=== PATIENT | female | born 1945 | race Caucasian/White ===

== ENCOUNTER 2018-01-11 14:44 | Inpatient (IN) | payer MEDICARE, OTHER ==
[2018-01-11] VITALS (20 sets, daily range): BP systolic 131–184; BP diastolic 53–101
[~2018-01-11] VITALS: Ht 177.8 cm; Wt 117.5 kg
[2018-01-11] MEDS ORDERED: ASPIRIN 81 MG CHEW TAB PO ONE (14:45)
[2018-01-11 15:38] LABS: BASOPHILS # (AUTO) 0.1 (0.0-0.1); EOSINOPHILS # (AUTO) 0.2 (0.0-0.4); EOSINOPHILS % 3.4 % (0.0-6.0); HEMATOCRIT 37.4 % (34.2-44.1); HEMOGLOBIN 12.2 g/dL (12.0-16.0); LYMPHOCYTES % 42.1 % (18.0-39.1); MEAN CORPUSCULAR HEMOGLOBIN 29.9 pg (28-32); MEAN CORPUSCULAR HGB CONC 32.6 g/dL (31-35); MEAN CORPUSCULAR VOLUME 91.7 fL (81-99); MONOCYTES # (AUTO) 0.5 (0.2-0.8); MONOCYTES % 7.4 % (4.4-11.3); NEUTROPHILS # (AUTO) 3.2 (2.1-6.9); NEUTROPHILS % 45.8 % (38.7-80.0); PLATELET COUNT 229 x10e3/uL (140-360); RED BLOOD COUNT 4.08 x10e6/uL (3.6-5.1); RED CELL DISTRIBUTION WIDTH 12.6 % (11.7-14.4)
--- NOTE | 2018-01-11 15:45 | Diagnostic Imaging Report ---
History:Slurred speech dizziness Comparison studies:MR brain 09/08/18 Technique: Axial images were obtained from the skull base to the vertex. Coronal and sagittal images reconstructed from the axial data. Intravenous contrast: None Findings: Scalp/skull: No abnormalities. Extra-axial spaces: No masses. No fluid collections. Brain sulci: Mildly prominent. Ventricles: Mild compensatory dilatation. No hydrocephalus. Parenchyma: Few hypodensities in the supratentorial white matter are small vessel ischemic changes. No masses, hemorrhage, acute or chronic cortical vascular insults. Sellar/suprasellar region: No abnormalities. Craniocervical junction: Patent foramen magnum. No Chiari one malformation. Incidental findings: Atherosclerotic calcifications in the carotid siphons . Impression: No acute abnormalities. Chronic findings: 1. Mild generalized volume loss. 2. Mild supratentorial white matter small vessel ischemic changes. Signed by: DR Dre Martinez M.D. on 01/11/2018 3:41 PM
--- NOTE | 2018-01-11 15:46 | Diagnostic Imaging Report ---
EXAMINATION: CHEST SINGLE (PORTABLE) INDICATION: Evaluation for possible stroke COMPARISON: None FINDINGS: TUBES and LINES: None. LUNGS: Lungs are well inflated. Lungs are clear. There is no evidence of pneumonia or pulmonary edema. PLEURA: No pleural effusion or pneumothorax. HEART AND MEDIASTINUM: Cardiac size is mildly enlarged. There are atherosclerotic calcifications within the aorta. BONES AND SOFT TISSUES: No acute osseous lesion. Anterior cervicothoracic spine fusion with plates and screws. Soft tissues are unremarkable. UPPER ABDOMEN: No free air under the diaphragm. IMPRESSION: No acute thoracic abnormality. Signed by: Dr. Jens Whalen M.D. on 01/11/2018 3:42 PM
[2018-01-11 15:53] LABS: INR 1.09; PROTHROMBIN TIME 13.3 seconds (11.9-14.5)
[2018-01-11 15:54] LABS: PARTIAL THROMBOPLASTIN TIME 34.2 seconds (23.8-35.5)
[2018-01-11 15:59] LABS: ALANINE AMINOTRANSFERASE 15 IU/L (0-55); ALBUMIN/GLOBULIN RATIO 1.1 (0.8-2.0); ALKALINE PHOSPHATASE 85 IU/L (40-150); ANION GAP 17.5 mmol/L (8-16); BLOOD UREA NITROGEN 7 mg/dL (7-26); BUN/CREATININE RATIO 8 (6-25); CALCIUM 9.8 mg/dL (8.4-10.2); CARBON DIOXIDE 22 mmol/L (22-29); CHLORIDE 108 mmol/L (98-107); CREATINE KINASE 95 IU/L (29-168); CREATININE, SERUM 0.83 mg/dL (0.57-1.11); EST GLOMERULAR FILTRATION RATE > 60 ML/MIN (60-); GLUCOSE 120 mg/dL (74-118); POTASSIUM 4.5 mmol/L (3.5-5.1); SODIUM 143 mmol/L (136-145)
[2018-01-11 16:14] LABS: BILIRUBIN,URINE NEGATIVE (NEGATIVE); CLARITY,URINE SL CLOUDY (CLEAR); COLOR,URINE YELLOW (YELLOW); KETONES,URINE NEGATIVE (NEGATIVE); LEUKOCYTE ESTERASE ,URINE 1+ (NEGATIVE); NITRITE,URINE NEGATIVE (NEGATIVE); PROTEIN,URINE DIPSTICK 1+ (NEGATIVE); URINE UROBILINOGEN 0.2 mg/dL (0.2 - 1)
[2018-01-11 16:22] LABS: EPITHELIAL CELLS,URINE MANY /LPF; RBC,URINE 0-5 /HPF (0-5); RENAL EPITHELIAL CELLS,URINE RARE; TRANSITIONAL EPI CELLS,URINE MODERATE
[2018-01-11] MEDS ORDERED: LORAZEPAM 0.5 MG TAB PO PRN (17:00)
[2018-01-11] MEDS ORDERED: ONDANSETRON HCL INJ 2 MG/ML VIAL IV PRN ×2 (17:00→17:45)
[2018-01-11] MEDS ORDERED: KETOROLAC TROMETHAMINE 30 MG/ML VIAL IV ONE (17:00)
[2018-01-11] MEDS ORDERED: LORAZEPAM 1 MG TAB PO ONE (17:00)
[2018-01-11] MEDS: NITROFURANTOIN MACROCRYSTALS 100 MG CAP PO SCH (17:00)
[2018-01-11] MEDS ORDERED: ASPIRIN 325 MG TAB PO ONE (17:00)
[2018-01-11] MEDS: SODIUM CHLORIDE 0.9% 1000ML 1,000 ML IV SCH (17:00)
[2018-01-11] MEDS ORDERED: ACETAMINOPHEN 325 MG TAB PO PRN (17:45)
[2018-01-11] MEDS ORDERED: LISINOPRIL10 MG PO (17:58)
[2018-01-11] MEDS ORDERED: MACROBID 100 M100 MG (18:00)
[2018-01-11] MEDS ORDERED: CRESTOR10 MG (18:00)
[2018-01-11] MEDS: HYDRALAZINE HCL 20 MG/ML VIAL IV PRN (18:48)
[2018-01-11] MEDS ORDERED: ALTEPLASE 50 MG/VIAL (29 MILLION IU) IV ONE ×3 (20:13→22:00)
--- NOTE | 2018-01-11 20:40 | Diagnostic Imaging Report ---
Examination: CT head without contrast Clinical Indication: Dizziness; rule out stroke. Technique: Transaxial noncontrast images from the skull base through the vertex were obtained. Sagittal and coronal reformatted images were done. Comparison: Head CT performed earlier today. Findings: Scalp: No abnormalities. Bones: Intact. No fractures. No blastic or lytic lesions. Brain sulci: Mild volume loss for patient's age. Ventricles: No hydrocephalus. Extra-axial space: No abnormalities. Parenchyma: There are patchy areas of low-attenuation within subcortical and periventricular white matter, nonspecific, but could represent microvascular ischemic disease. No masses, hemorrhage, or acute or chronic cortical based vascular insults. Suprasellar region: No abnormalities. Craniocervical junction: The foramen magnum is patent. No Chiari one malformation. Incidental findings: Atherosclerotic calcification of the cavernous and supraclinoid internal carotid and V4 segments of the bilateral vertebral arteries. Impression: 1. No new acute intracranial finding. No change from head CT performed earlier today. 2. Mild chronic microvascular ischemic change and volume loss. Signed by: Dr. Anni Hartman M.D. on 01/11/2018 8:36 PM
--- NOTE | 2018-01-11 22:59 | Consultation ---
DATE OF CONSULTATION: January 11, 2018 NEUROLOGY CONSULT HISTORY OF PRESENT ILLNESS: Ms. Foster is a 72-year-old right hand dominant woman with past medical history significant for hypertension and hyperlipidemia, who presented to the Emergency Center at [facility] on the afternoon of January 11, 2018, with neurological symptoms. At approximately 1400 on the day of admission, the patient experienced the acute onset of dysarthria, expressive aphasia, and dizziness which is further described as lightheadedness. Simultaneously, the patient noticed she was drooling, suggesting a facial droop. However, Ms. Foster cannot say whether or not she had a facial droop or which side the facial droop may have been on. When she informed her of her symptoms, he put the patient in a car and brought her to the Emergency Center at [facility] for further evaluation. While they were en route, the patient's daughter contacted the Emergency Center to let the physicians and nurses know the patient would be arriving soon. Upon arrival in the emergency center, the patient was afebrile with a blood pressure of 148/126 mmHg and a pulse of 73 beats per minute. While in the emergency room, the patient's symptoms reportedly began to improve and subsequently resolved. However, there is disagreement between the patient's various family members as to whether or not her symptoms did in fact resolve. The patient's neurological examination as documented by the emergency center physician is as follows: Alert. Oriented times 3. Aphasia (slight slurred speech). Mood/affect normal. Speech normal. Cranial nerves normal (as tested). No cerebellar findings. No motor deficits. No sensory deficit. Reflexes normal. A CT of the brain without contrast was performed and did not show evidence of recent large territorial ischemia or hemorrhage. As stated above, the emergency center physician and staff reported the patient's symptoms significantly improved and subsequently resolved while in the emergency center. Therefore, the patient was not considered a candidate for intravenous thrombolytics. Ms. Foster was admitted to the hospital under observation status for further evaluation and treatment of her symptoms. At approximately 1910 on January 11, 2018, the patient experienced the sudden onset of dysarthria, expressive aphasia, right facial droop, and right arm weakness. I was contacted by the floor nurse at approximately 1930 regarding the recurrence of symptoms. I advised the patient be moved to the intensive care unit for administration of intravenous thrombolytics if appropriate. Upon my arrival in the intensive care unit, the patient's blood pressure was elevated in the 180s systolic and 100s diastolic. A neurological examination was performed. Ms. Foster was given an NIH stroke scale score of 4 with 1 point given for dysarthria, 1 point for aphasia, 1 point for right facial droop, and 1 point for drift in the right arm. A STAT CT of the brain without contrast was performed and did not show evidence of recent large territorial ischemia or hemorrhage. It was determined the patient had no absolute contraindications to intravenous thrombolytics. The potential benefits and adverse effects of intravenous t-PA were discussed with the patient who gave her consent for treatment. At approximately 2019, the patient received a loading dose of t-PA 9 mg intravenously followed by an infusion of 81 mg intravenously over 1 hour. REVIEW OF SYSTEMS: Urinary urgency, urinary frequency, dysarthria, expressive aphasia, right facial weakness, right arm weakness, mild headache. Otherwise the 12-point review of systems is negative. PAST MEDICAL HISTORY: Hypertension, hyperlipidemia, multiple urinary tract infections, gastroesophageal reflux disease, prior history of migraines. PAST SURGICAL HISTORY: Resection of a benign colon mass, bilateral total knee replacements, lumbar spine laminectomy, cervical spine surgery complicated by infection, tonsillectomy, appendectomy. PAST HOSPITALIZATIONS: Surgeries/procedures as listed, childbirth times 2. FAMILY HISTORY: The patient's paternal and maternal grandparents are . Their medical histories are unknown. The patient's father is from coronary artery disease with prior myocardial infarction. The patient's mother is . Her cause of is unknown. Ms. Foster has 1 brother who is alive. He has coronary artery disease and is status post CABG. Ms. Foster has 1 daughter, who is alive. She has hypertension and epilepsy. A 2nd child was stillborn. SOCIAL HISTORY: The patient is . She is a high school graduate. 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 The patient does endorse a remote history of tobacco use, but quit smoking cigarettes in 1998. Ms. Foster does not report current or prior alcohol or recreational drug use. HOME MEDICATIONS: 1. Lisinopril 10 mg by mouth daily. 2. Crestor 10 mg by mouth daily. 3. Macrobid 100 mg by mouth twice daily. ALLERGIES: NO KNOWN DRUG ALLERGIES. NO KNOWN FOOD ALLERGIES. NO KNOWN ALLERGIES TO LATEX. NO KNOWN ALLERGIES TO IODINE OR OTHER CONTRAST MATERIALS. PHYSICAL EXAMINATION: VITAL SIGNS: Height 70 inches, weight 260 pounds, BMI 37.3 kg/m squared. Blood pressure 175/101 mmHg, pulse 85 beats per minute, respiratory rate 18 breaths per minute, oxygen saturation 99% on 2 L by nasal cannula. GENERAL: The patient is awake and alert, moderately distressed. Morbidly obese. HEENT: Normocephalic, atraumatic. Pupils are equal, round and reactive to light. Moist mucous membranes. NECK: Supple. No appreciable thyromegaly. No appreciable carotid bruits. CARDIOVASCULAR: S1, S2, regular rate and rhythm. No murmurs, rubs, or gallops. RESPIRATORY: Clear to auscultation bilaterally. No wheezes, rhonchi, or rales. EXTREMITIES: The skin is warm and dry. No clubbing, cyanosis, or edema. The posterior tibial and dorsalis pedis pulses are 1+ and symmetric. SKIN: No rashes or lesions. NEUROLOGIC: MEMORY/ATTENTION: The patient is awake and alert, oriented to person, place, time and situation. CRANIAL NERVES: Cranial nerve I-not tested. Cranial nerve II, III, IV, and -pupils are equal and round, react briskly to light (from 4 mm to 2 mm), extraocular movements intact, no nystagmus. Cranial nerve V-sensation to light touch and pinprick is intact in the bilateral V1 through V3 distributions. Strength of the temporalis and masseter muscles is within normal limits. Cranial nerve VII-flattening of the right nasolabial fold with mild central right facial weakness. Cranial nerve VIII-hearing is diminished to finger rub bilaterally. Cranial nerve IX, X-the soft palate elevates equally and symmetrically. Cranial nerve XI-normal strength of the bilateral sternocleidomastoid and trapezius muscles. Cranial nerve XII-the tongue protrudes in midline and moves symmetrically from side to side. STRENGTH: Bulk is normal. Ms. Foster is able to maintain both arms against gravity for more than 10 seconds each with drift in the right arm. She is able to maintain both legs against gravity for more than 5 seconds each without drift. Tone is normal. DTRs: Deep tendon reflexes are 1+ and symmetric at the triceps, biceps, brachioradialis, and patellas. Deep tendon reflexes are absent and symmetric at the Achilles. Plantar responses are flexor bilaterally. SENSATION: Sensation is intact to light touch in both arms and both legs. Sensation is decreased to pinprick over the left arm and right leg. CEREBELLAR: Qzeyuu-ojpz-zppgnr and heel-coppola movements are intact without dysmetria or other impairment. GAIT: Deferred. SPEECH: Spontaneous speech is mildly to moderately dysarthric with moderate aphasia. Repetition is intact. INVOLUNTARY MOVEMENTS: None. PRONATOR DRIFT: As per motor exam. LABORATORY DATA: Sodium 143, potassium 4.5, chloride 108, carbon dioxide 22, anion gap 17.5, BUN 7, creatinine 0.83, estimated GFR greater than 60, BUN to creatinine ratio 8, glucose 120. Calcium 9.8. Total bilirubin 0.4, AST 27, ALT 15, alkaline phosphatase 85. Total protein 7.8, albumin 4.0, globulin 3.8, albumin to globulin ratio 1.1, creatinine kinase 95, CK-MB 1.30, troponin I 0.028, B-type natriuretic peptide 484.6. CBC with differential and platelets reveal the white blood cell count of 7.06 with 45.8% neutrophils, 42.1% lymphocytes, 7.4% monocytes, 3.4% eosinophils and 1.0% basophils. The hemoglobin and hematocrit are 12.2 and 37.4, respectively. The platelet count is 229,000. PT 13.3, INR 1.09, PTT 34.2. Urinalysis is significant for 1+ protein, trace blood, 1+ leukocyte esterase, 11 to 20 white blood cells, moderate transition epithelials cells, rare renal epithelials cells, no bacteria and 1 to 5 fine granular casts. DIAGNOSTIC STUDIES: Electrocardiogram of January 11, 2018: Normal sinus rhythm at 66 beats per minute. Chest x-ray of January 11, 2018: No acute thoracic abnormality. CT of the brain without contrast of January 11, 2018: On my review, there is no evidence of recent large territorial ischemia, hemorrhage, mass, or mass effect. There are findings suggestive of upus-iu-zasucotr chronic small vessel ischemic disease. CT of the brain without contrast of January 12, 2008: On my review, there is no evidence of recent large territorial ischemia, hemorrhage, mass, or mass effect. There are findings compatible with luuk-[id number] chronic small vessel ischemic disease. ASSESSMENT AND PLAN: Ms. Foster is a 72-year-old right hand dominant woman with past medical history significant for hypertension and hyperlipidemia, admitted to [facility] on January 11, 2018, with a suspected transient ischemic attack. As stated in the history of present illness, the patient's symptoms reportedly resolved while in the emergency center. However, following admission to the floor, the patient once again experienced the acute onset of dysarthria, expressive aphasia, right facial droop, and right arm weakness at approximately 1910. On my neurological examination, the patient was given an National Institutes of Health Stroke Scale score of 4. A repeat computed tomography of the brain without contrast was performed that did not show evidence of recent ischemia or hemorrhage. As stated in the history of present illness, the patient had no absolute contraindications to intravenous thrombolytics. Informed consent was obtained and Ms. Foster was treated with intravenous tissue plasminogen activator, 9 mg loading dose and 81 mg infused over 1 hour. The patient's neurological examination is significant for flattening of the right nasolabial fold with mild central right facial weakness, drift of the right arm, mild to moderate dysarthria and moderate expressive aphasia. The patient's laboratory data and other diagnostic studies have been reviewed and are documented above. RECOMMENDATIONS: 1. Lipid panel and hemoglobin A1c. 2. Echocardiogram. 3. Bilateral carotid artery ultrasound with Doppler. 4. MRI of the brain without contrast. 5. No antiplatelet or anticoagulant medication will be given for 24 hours, status post t-PA administration. 6. Allow permissive hypertension for 24 to 48 hours following a stroke. The patient's goal blood pressure is 170 to 200 mmHg systolic and 70 to 100 mmHg diastolic. Vital signs shall be monitored per unit protocol. 7. Follow up the results of the lipid panel. In the interim, treatment with Crestor 10 mg by mouth at bedtime daily will be continued. 8. Follow up the results of the hemoglobin A1c. Tight glycemia control is recommended. 9. Speech and physical therapy consultations will be ordered. 10. GI prophylaxis with Pepcid 20 mg by mouth twice daily before meals. 11. DVT prophylaxis with COLLINS hose and SCDs. 12. Continue antibiotics for urinary tract infection. 13. Defer treatment of other medical comorbidities to the primary and other services following the patient. Thank you for this consultation. I will continue to follow the patient while she remains in the hospital. TIME SPENT: 150 minutes. CRITICAL CARE TIME: 80 minutes. Job#: [id number] [id number]
[2018-01-12] VITALS (64 sets, daily range): BP systolic 94–215; BP diastolic 53–117
[2018-01-12 01:24] LABS: CREATINE KINASE MB 1.9 ng/mL (0-5.0)
[2018-01-12] MEDS: SODIUM CHLORIDE 0.9% 1000ML 1,000 ML IV SCH ×2 (03:06→17:32)
[2018-01-12 03:10] LABS: BASOPHILS # (AUTO) 0.1 (0.0-0.1); BASOPHILS % 0.7 % (0.0-1.0); EOSINOPHILS # (AUTO) 0.2 (0.0-0.4); EOSINOPHILS % 2.5 % (0.0-6.0); HEMOGLOBIN 11.6 g/dL (12.0-16.0); LYMPHOCYTES # (AUTO) 2.8 (1.0-3.2); LYMPHOCYTES % 32.7 % (18.0-39.1); MEAN CORPUSCULAR HEMOGLOBIN 30.3 pg (28-32); MEAN CORPUSCULAR HGB CONC 33.1 g/dL (31-35); MEAN CORPUSCULAR VOLUME 91.4 fL (81-99); MONOCYTES # (AUTO) 0.5 (0.2-0.8); MONOCYTES % 6.1 % (4.4-11.3); NEUTROPHILS % 57.8 % (38.7-80.0); PLATELET COUNT 276 x10e3/uL (140-360); RED BLOOD COUNT 3.83 x10e6/uL (3.6-5.1); RED CELL DISTRIBUTION WIDTH 12.8 % (11.7-14.4)
[2018-01-12 03:30] LABS: ANION GAP 14.5 mmol/L (8-16); BLOOD UREA NITROGEN 8 mg/dL (7-26); BUN/CREATININE RATIO 11 (6-25); CALCIUM 9.2 mg/dL (8.4-10.2); CARBON DIOXIDE 22 mmol/L (22-29); CHLORIDE 109 mmol/L (98-107); CHOL/HDL RATIO 3.1 (3.0-3.6); CHOLESTEROL 108 MD/DL (0-199); CREATININE, SERUM 0.73 mg/dL (0.57-1.11); EST GLOMERULAR FILTRATION RATE > 60 ML/MIN (60-); GLUCOSE 123 mg/dL (74-118); HDL CHOLESTEROL 35 MG/DL (40-60); LDL CHOLESTEROL 50 MG/DL (60-130); POTASSIUM 3.5 mmol/L (3.5-5.1); SODIUM 142 mmol/L (136-145); TRIGLYCERIDES 114 MG/DL (0-149)
[2018-01-12 03:42] LABS: B-TYPE NATRIURETIC PEPTIDE2 777.6 pg/mL (0-100)
[2018-01-12 03:50] LABS: FREE T4 (FREE THYROXINE) 0.81 ng/dL (0.9-1.8); THYROID STIMULATING HORMONE 2.103 uIU/mL (0.350-4.940)
[2018-01-12] MEDS ORDERED: ALBUTEROL SULF 0.083% NEB SOLN 3 ML NEB ONE (06:12)
[2018-01-12] MEDS ORDERED: FUROSEMIDE INJ 10 MG/ML 4 ML VIAL ONE (06:23)
[2018-01-12 07:29] LABS: CREATINE KINASE MB 1.5 ng/mL (0-5.0)
[2018-01-12] MEDS ORDERED: ASPIRIN 325 MG TAB EC PO SCH (09:00)
[2018-01-12] MEDS: FAMOTIDINE 20 MG TAB PO SCH ×2 (09:51→17:32)
[2018-01-12] MEDS: NITROFURANTOIN MACROCRYSTALS 100 MG CAP PO SCH ×2 (09:51→17:32)
--- NOTE | 2018-01-12 14:07 | Diagnostic Imaging Report ---
Exam: Brain MRI without with IV contrast History: Insert speech, rule out CVA Comparison studies: Brain MRI 09/08/[address]s of 01/11/2018. Technique: Sagittal and axial T2 FS, axial coronal T2 flair, axial T2*GRE, axial T1 FLAIR and axial DWI. Intravenous contrast: None Findings: Scalp: Normal in signal. No masses. Bone marrow: Normal in signal intensity. Brain sulci: Mildly prominent. Ventricles: Mild compensatory dilatation. Extra axial spaces: No mass, no fluid collection. Parenchyma: No mass, hemorrhage or acute ischemia. A few scattered T2 FLAIR hyperintense foci in the supratentorial white matter are nonspecific but most compatible with chronic small vessel ischemic changes. Small chronic right cerebellar lacunar infarct is unchanged. Suprasellar region: No abnormalities. Craniocervical junction: Patent foramen magnum. No Chiari malformation. Vessels: Normal flow-voids in the arteries and sinuses. IMPRESSION: No acute ischemia or other acute intracranial abnormalities. Chronic findings: 1. Stable mild microvascular ischemic changes. 2. Unchanged small chronic right cerebellar lacunar infarct. 3. Mild generalized volume loss, increased from 2008. Signed by: Dr. Wayne Veras M.D. on 01/12/2018 2:03 PM
[2018-01-12] MEDS: HYDRALAZINE HCL 20 MG/ML VIAL IV PRN (17:29)
[2018-01-12 18:33] LABS: CREATINE KINASE MB 1.6 ng/mL (0-5.0)
--- NOTE | 2018-01-12 19:08 | History and Physical ---
PRIMARY CARE PHYSICIAN: Dr. Zafar. CHIEF COMPLAINT: Facial droop and slow speech. HISTORY OF PRESENT ILLNESS: This is a 72-year-old woman with a history of hypertension, now developing slurred speech, weakness of the face and right facial droop with right arm weakness. She was brought to the hospital and tPA was given. The patient was admitted to ICU for further evaluation and management. Currently, the patient's symptoms have resolved. She feels better. She has some mild chest discomfort. She denies any dizziness and denies any headache. PAST MEDICAL HISTORY: Hypertension, hyperlipidemia with chronic urinary tract infection, GERD, migraine headaches and hyperlipidemia. PAST SURGICAL HISTORY: Benign colon mass resection in November 2017, knee surgery x2, appendectomy, laminectomy, rotator cuff repair, appendectomy and tonsillectomy. ALLERGIES: PER ELECTRONIC MEDICAL RECORDS. FAMILY HISTORY AND SOCIAL HISTORY: The patient is . She has one child. No alcohol or illicits. No cigarette use. MEDICATIONS: Per electronic medical records. REVIEW OF SYSTEMS: Denies any dizziness or chest pain. PHYSICAL EXAMINATION VITAL SIGNS: Reviewed. GENERAL APPEARANCE: A tired-appearing woman resting in the bed. HEENT: Anicteric. Pupils responsive to light. No oral lesions. CARDIOVASCULAR: Normal S1 and S2. No murmurs. ABDOMEN: Soft and nontender. EXTREMITIES: There is no edema or calf tenderness. NEUROLOGIC: Alert and oriented x3. Moving all extremities. Motor strength 5/5 in all extremities. No visual field deficits. MUSCULOSKELETAL: She has inferior chest wall/upper epigastric discomfort on palpation. SKIN: Dry. PSYCHIATRIC: Flat affect. LABS: Reviewed. MEDICATIONS: Reviewed. ASSESSMENT: This is a 72-year-old woman. 1. Transient ischemic attack. 2. Chronic right cerebellar lacunar infarct. 3. Left bundle branch block. 4. Pericardial effusion. 5. Mild to moderate mitral regurgitation. 6. Obesity with BMI of 36.9. 7. Prediabetes. 8. Elevated B-natriuretic peptide with normal left anterior ejection fraction. 9. Hyperlipidemia. 10. Urinary tract infection. PLAN: 1. She is status post tPA. Monitor closely in the ICU. Currently, no neurologic symptoms any longer. 2. Start on Macrobid for urinary tract infection. She does have a history of recurrent urinary tract infection. While in the hospital, may be more useful to use IV ceftriaxone. Therefore, we will hold nitrofurantoin at this time. Use IV ceftriaxone and follow up cultures. 3. Reduce IV fluids. 4. Continue blood pressure control. 5. EKG and troponin due to chest discomfort. 6. Treat GERD with Pepcid. 7. Physical therapy consultation. 8. The patient's LDL and triglycerides were 50 and 114 respectively. 9. Anxiety. Continue lorazepam p.r.n. 10. Prophylaxis: Continue Pepcid and Lovenox. DISPOSITION: I have discussed the case with the patient and daughter at bedside. Continue close monitoring. There are some anxiety issues at this time. Critical care time more than 35 minutes. Job#: [id number]
[2018-01-12] MEDS: ASPIRIN 325 MG TAB EC PO SCH (21:23)
[2018-01-12] MEDS: ENOXAPARIN SOD INJ 40 MG/0.4 ML SYR SC SCH (21:23)
[2018-01-12] MEDS: CRESTOR 10MG PO SCH (21:23)
[2018-01-13] VITALS (31 sets, daily range): BP systolic 111–179; BP diastolic 59–97
[2018-01-13 05:41] LABS: BASOPHILS # (AUTO) 0.1 (0.0-0.1); BASOPHILS % 1.1 % (0.0-1.0); EOSINOPHILS # (AUTO) 0.3 (0.0-0.4); EOSINOPHILS % 4.3 % (0.0-6.0); HEMATOCRIT 33.6 % (34.2-44.1); HEMOGLOBIN 10.8 g/dL (12.0-16.0); LYMPHOCYTES # (AUTO) 2.2 (1.0-3.2); LYMPHOCYTES % 33.7 % (18.0-39.1); MEAN CORPUSCULAR HEMOGLOBIN 30.1 pg (28-32); MEAN CORPUSCULAR HGB CONC 32.1 g/dL (31-35); MEAN CORPUSCULAR VOLUME 93.6 fL (81-99); MONOCYTES # (AUTO) 0.4 (0.2-0.8); MONOCYTES % 6.5 % (4.4-11.3); NEUTROPHILS # (AUTO) 3.5 (2.1-6.9); NEUTROPHILS % 54.1 % (38.7-80.0); PLATELET COUNT 269 x10e3/uL (140-360); RED BLOOD COUNT 3.59 x10e6/uL (3.6-5.1); RED CELL DISTRIBUTION WIDTH 12.9 % (11.7-14.4)
[2018-01-13 06:00] LABS: ANION GAP 12.5 mmol/L (8-16); BLOOD UREA NITROGEN 6 mg/dL (7-26); BUN/CREATININE RATIO 8 (6-25); CALCIUM 9.1 mg/dL (8.4-10.2); CARBON DIOXIDE 24 mmol/L (22-29); CHLORIDE 109 mmol/L (98-107); CREATININE, SERUM 0.72 mg/dL (0.57-1.11); EST GLOMERULAR FILTRATION RATE > 60 ML/MIN (60-); GLUCOSE 128 mg/dL (74-118); MAGNESIUM 1.8 MG/DL (1.3-2.1); POTASSIUM 3.5 mmol/L (3.5-5.1); SODIUM 142 mmol/L (136-145)
[2018-01-13] MEDS ORDERED: CEFTIN PO (07:42)
[2018-01-13] MEDS ORDERED: ASPIRIN ENTERI325 MG PO (07:42)
[2018-01-13] MEDS: LISINOPRIL 10 MG TAB PO SCH (09:00)
[2018-01-13] MEDS: FAMOTIDINE 20 MG TAB PO SCH ×2 (09:00→16:43)
[2018-01-13] MEDS: CEFTRIAXONE SOD 1 GM VIAL IV SCH (09:30)
[2018-01-13] MEDS: AMLODIPINE BESYLATE 10 MG TAB PO SCH (16:35)
[2018-01-13] MEDS: ENOXAPARIN SOD INJ 40 MG/0.4 ML SYR SC SCH (18:09)
[2018-01-13] MEDS: CRESTOR 10MG PO SCH (21:25)
[2018-01-13] MEDS: ASPIRIN 325 MG TAB EC PO SCH (21:25)
[2018-01-14] VITALS (10 sets, daily range): BP systolic 121–176; BP diastolic 50–90
[2018-01-14 06:11] LABS: BASOPHILS # (AUTO) 0.1 (0.0-0.1); BASOPHILS % 0.8 % (0.0-1.0); EOSINOPHILS # (AUTO) 0.3 (0.0-0.4); EOSINOPHILS % 4.7 % (0.0-6.0); HEMATOCRIT 33.3 % (34.2-44.1); LYMPHOCYTES # (AUTO) 2.4 (1.0-3.2); LYMPHOCYTES % 38.3 % (18.0-39.1); MEAN CORPUSCULAR HEMOGLOBIN 30.2 pg (28-32); MEAN CORPUSCULAR VOLUME 91.5 fL (81-99); MONOCYTES # (AUTO) 0.5 (0.2-0.8); MONOCYTES % 7.3 % (4.4-11.3); NEUTROPHILS % 48.6 % (38.7-80.0); PLATELET COUNT 273 x10e3/uL (140-360); RED BLOOD COUNT 3.64 x10e6/uL (3.6-5.1); RED CELL DISTRIBUTION WIDTH 12.6 % (11.7-14.4)
[2018-01-14 07:00] LABS: ANION GAP 14.5 mmol/L (8-16); BLOOD UREA NITROGEN 6 mg/dL (7-26); BUN/CREATININE RATIO 8 (6-25); CALCIUM 9.4 mg/dL (8.4-10.2); CARBON DIOXIDE 25 mmol/L (22-29); CHLORIDE 108 mmol/L (98-107); CREATININE, SERUM 0.72 mg/dL (0.57-1.11); EST GLOMERULAR FILTRATION RATE > 60 ML/MIN (60-); GLUCOSE 125 mg/dL (74-118); MAGNESIUM 1.6 MG/DL (1.3-2.1); POTASSIUM 3.5 mmol/L (3.5-5.1); SODIUM 144 mmol/L (136-145)
[2018-01-14 07:35] LABS: FERRITIN 35.92 ng/mL (4.63-204.00)
[2018-01-14] MEDS: FAMOTIDINE 20 MG TAB PO SCH ×2 (07:42→16:42)
[2018-01-14] MEDS: CEFTRIAXONE SOD 1 GM VIAL IV SCH (07:42)
[2018-01-14] MEDS: AMLODIPINE BESYLATE 10 MG TAB PO SCH (08:00)
[2018-01-14 08:14] LABS: FOLATE 12.1 ng/mL (7.0-15.4)
[2018-01-14] MEDS: LISINOPRIL 10 MG TAB PO SCH (08:32)
[2018-01-14] MEDS ORDERED: VITAMIN B-121000 MC1 PO (08:39)
[2018-01-14] MEDS ORDERED: ASPIRIN325 MG PO (08:39)
[2018-01-14] MEDS ORDERED: CEFTIN PO (08:39)
[2018-01-14] MEDS ORDERED: CRESTOR10 MG PO (08:48)
[2018-01-14] MEDS ORDERED: NIFEDIPINE ER30 M1 PO (08:52)
[2018-01-14] MEDS ORDERED: NIFEDIPINE CR 30 MG TAB PO SCH (09:00)
[2018-01-14] MEDS: CYANOCOBALAMIN 1,000 MCG TAB PO SCH (10:00)
[2018-01-14] MEDS: HYDRALAZINE HCL 20 MG/ML VIAL IV PRN (12:38)
[2018-01-14] MEDS: HYDRALAZINE HCL 10 MG TAB PO SCH ×2 (16:42→22:00)
[2018-01-14] MEDS: ENOXAPARIN SOD INJ 40 MG/0.4 ML SYR SC SCH (16:43)
[2018-01-14] MEDS: NIFEDIPINE CR 30 MG TAB PO SCH (18:20)
[2018-01-14] MEDS: CRESTOR 10MG PO SCH (20:55)
[2018-01-14] MEDS: ASPIRIN 325 MG TAB EC PO SCH (20:56)
[2018-01-14] MEDS ORDERED: HYDRALAZINE HCL 10 MG TAB PO SCH (22:00)
[2018-01-15 03:18] LABS: BASOPHILS # (AUTO) 0.1 (0.0-0.1); BASOPHILS % 0.6 % (0.0-1.0); EOSINOPHILS # (AUTO) 0.3 (0.0-0.4); EOSINOPHILS % 3.7 % (0.0-6.0); HEMATOCRIT 34.9 % (34.2-44.1); HEMOGLOBIN 11.5 g/dL (12.0-16.0); LYMPHOCYTES # (AUTO) 2.3 (1.0-3.2); LYMPHOCYTES % 28.5 % (18.0-39.1); MEAN CORPUSCULAR HEMOGLOBIN 30.1 pg (28-32); MEAN CORPUSCULAR VOLUME 91.4 fL (81-99); MONOCYTES # (AUTO) 0.6 (0.2-0.8); MONOCYTES % 7.6 % (4.4-11.3); NEUTROPHILS # (AUTO) 4.8 (2.1-6.9); NEUTROPHILS % 59.2 % (38.7-80.0); PLATELET COUNT 294 x10e3/uL (140-360); RED BLOOD COUNT 3.82 x10e6/uL (3.6-5.1); RED CELL DISTRIBUTION WIDTH 12.8 % (11.7-14.4)
[2018-01-15 03:43] LABS: ANION GAP 14.7 mmol/L (8-16); BLOOD UREA NITROGEN 5 mg/dL (7-26); BUN/CREATININE RATIO 7 (6-25); CALCIUM 9.5 mg/dL (8.4-10.2); CARBON DIOXIDE 25 mmol/L (22-29); CHLORIDE 106 mmol/L (98-107); CREATININE, SERUM 0.73 mg/dL (0.57-1.11); EST GLOMERULAR FILTRATION RATE > 60 ML/MIN (60-); GLUCOSE 142 mg/dL (74-118); MAGNESIUM 1.6 MG/DL (1.3-2.1); POTASSIUM 3.7 mmol/L (3.5-5.1); SODIUM 142 mmol/L (136-145)
[2018-01-15 04:25] VITALS: BP 133/64
[2018-01-15] MEDS: HYDRALAZINE HCL 10 MG TAB PO SCH (06:17)
[2018-01-15] MEDS ORDERED: HYDRALAZINE HCL10 MG PO (06:58)
[2018-01-15] MEDS ORDERED: CEFTIN PO (06:58)
[2018-01-15] MEDS ORDERED: NIFEDIPINE ER30 M1 PO (06:58)
[2018-01-15 07:00] VITALS: BP 142/56
[2018-01-15] MEDS: CEFTRIAXONE SOD 1 GM VIAL IV SCH (08:07)
[2018-01-15] MEDS: FAMOTIDINE 20 MG TAB PO SCH (08:07)
[2018-01-15] MEDS: NIFEDIPINE CR 30 MG TAB PO SCH (08:07)
[2018-01-15] MEDS: CYANOCOBALAMIN 1,000 MCG TAB PO SCH (08:07)
[2018-01-15] MEDS: LISINOPRIL 10 MG TAB PO SCH (08:07)
[2018-01-15] MEDS ORDERED: NIFEDIPINE CR 30 MG TAB PO SCH (09:00)
[2018-01-15 11:45] VITALS: BP 143/68
--- NOTE | 2018-01-15 17:22 | Discharge Summary ---
ADMISSION DIAGNOSES 1. Transient ischemic attack. 2. Chronic right cerebellar infarct. 3. Left bundle branch block. 4. Pericardial effusion. 5. Mild to moderate mitral regurgitation. 6. Obesity. HISTORY: Patient has a history of hypertension, hyperlipidemia, chronic UTI, GERD, migraine, and a surgical history of benign colon mass resected in November 2017, knee surgery x2, appendectomy, laminectomy, rotator cuff repair, and tonsillectomy. HOSPITAL COURSE: A 72-year-old female with a history of hypertension now developed slurred speech, weakness of the face, and right facial droop with right arm weakness. She was brought to the hospital, and tPA was given on January 11, 2018, around 2300. The patient's symptoms have resolved. She feels better, denies any denies and headache. Neurology was consulted upon admission. Chest x-ray done that showed no acute thoracic abnormality. CT of the brain was negative with no acute abnormalities. A repeat CT was done after the tPA was administered with no abnormalities. An MRI of the brain show no acute ischemia or acute intracranial abnormalities. Urine culture was done, which was contaminated, although the UA showed leukocyte, blood. The carotid Doppler showed stenosis in the left carotid. Per Neurology patient was given tPA with no antiplatelet or anticoagulation for 24 hours. She was allowed to be hypertensive 24 to 48 hours following stroke where the blood pressure goal was between 160 to 200 systolic and 70 to 100 diastolic. It took about 2 days to get the patient's blood pressure under control. She had to be started on nifedipine and hydralazine to control her blood pressure. So, upon discharge she was kept on her Crestor, her lisinopril. She was started on aspirin, vitamin B12, nifedipine 60 daily, and Ceftin b.i.d. for 3 more days. She will follow up with Neurology in 2 weeks and primary care in 1 to 2 weeks. She has been instructed to keep an eye on her blood pressure and take her medications as prescribed. She understands discharge instructions and will follow up as discussed. She is ready to go home. Neurology is in agreement with discharge. Dictated by: Lucía Flores NP MIRIAM HWANG MD Job#: [id number] EV
[2018-01-15] MEDS ORDERED: ATORVASTATIN 20 MG TAB PO SCH (21:00)
[2018-01-15] MEDS ORDERED: SIMVASTATIN 40 MG TAB PO SCH (21:00)
--- OUTSIDE RECORDS SUMMARY | 2018-04-29 13:08 | XMS REPORT | Summary of Care ---
Author Author [facility] [place] Organization [facility] [place] Address Unknown Phone Unavailable Encounter HQ Encntr_alias(FIN) [id number] Date(s): 09/10/17 - 09/10/17 [facility] [place] [address] [place] [address] [phone] Encounter Diagnosis Encounter for screening mammogram for malignant neoplasm of breast (Final) - Discharge Disposition: Home or Self Care Attending Physician: Junito Zafar MD Vital Signs No data available for this section Problem List No data available for this section Allergies, Adverse Reactions, Alerts No data available for this section Medications No data available for this section Results No data available for this section Immunizations No data available for this section Procedures No data available for this section Social History No data available for this section Assessment and Plan No data available for this section
--- OUTSIDE RECORDS SUMMARY | 2018-04-29 13:08 | XMS REPORT | Summary of Care ---
Author Author [facility] [place] Organization [facility] [place] Address Unknown Phone Unavailable Encounter HQ Encntr_alias(FIN) [id number] Date(s): 08/07/15 - 08/07/15 [facility] [place] [address] [place], [place] [address] [phone] Discharge Disposition: Home Attending Physician: Junito Zafar MD Vital Signs [...]
--- OUTSIDE RECORDS SUMMARY | 2018-04-29 13:08 | XMS REPORT | Clinical Summary ---
Author Author [facility] Organization [facility] Address Unknown Phone Unavailable Care Team Providers Care Senior Marketing Analyst Name Role Phone Asked, Pcp PCP Unavailable Allergies No Known Allergies Current Medications Prescription Sig. Disp. Refills Start End Date Status Date zolpidem (AMBIEN) 10 mg Take 10 mg by mouth 10/03/19 Active tablet nightly. 18 rosuvastatin (CRESTOR) 5 nightly. 08/04/19 Active MG tablet 18 meloxicam (MOBIC) 15 mg Take 7.5 mg by mouth 2 09/11/19 Active tablet (two) times a day. 18 acetaminophen (TYLENOL) Take 1 tablet (500 mg 180 tablet 0 11/15/19 12/15/19 500 MG tablet total) by mouth every 4 18 18 (four) hours for 30 days. gabapentin (NEURONTIN) Take 1 capsule (300 mg 90 capsule 0 11/15/19 12/15/19 300 mg capsule total) by mouth 3 (three) 18 18 times a day for 30 days. amLODIPine (NORVASC) 10 Take 1 tablet (10 mg 30 tablet 0 11/16/19 mg tablet total) by mouth daily for 18 18 30 days. methocarbamol (ROBAXIN) Take 1 tablet (500 mg 40 tablet 0 11/15/19 11/25/19 500 MG tablet total) by mouth 4 (four) 18 18 times a day for 10 days. amoxicillin-pot Take 1 tablet by mouth 2 20 tablet 0 11/15/19 clavulanate (AUGMENTIN) (two) times a day for 10 18 18 875-125 mg per tablet days. Active Problems Problem Noted Date Colonic mass 11/12/2017 Encounters Date Type Specialty Care Team Description 11/12/2017 [facility] General Surgery Wayne Hyatt MD Colon polyp - Encounter 11/14/2017 11/12/2017 Procedure Pass General Surgery 11/12/2017 Surgery General Surgery Wayne Hyatt MD LAPAROSCOPIC VS OPEN RIGHT COLECTOMY 10/23/2017 Pre-Admit Pre-Admission Testing Wayne Hyatt MD Preop testing (Primary Testing Dx) Appointment 10/23/2017 Hospital Radiology Wayne Hyatt MD Colonic mass Encounter 10/23/2017 Anesthesia General Surgery [facility], Daniel Waller, BARREL BRANDER 10/17/2017 Transcribe Access Wayne Hyatt MD Multiple benign polyps of Orders large intestine (Primary Dx); Colonic mass after 01/10/2017 Family History Medical History Relation Name Comments Heart disease Brother Heart disease Father OR Heart disease Mother MVR,sepsis Relation Name Status Comments Brother Alive Father (Age 62) Mother (Age 76) Social History Tobacco Use Types Packs/Day Years Used Date Former Smoker 1 15 Quit: 1998 Smokeless Tobacco: Never Used Alcohol Use Drinks/Week oz/Week Comments No Sex Assigned at Date Recorded Not on file Last Filed Vital Signs Vital Sign Reading Time Taken Blood Pressure 141/79 11/14/2017 4:44 PM CDT Pulse 69 11/14/2017 4:44 PM CDT Temperature 36.3 C (97.4 F) 11/14/2017 4:44 PM CDT Respiratory Rate 18 11/14/2017 4:44 PM CDT Oxygen Saturation 97% 11/14/2017 4:44 PM CDT Inhaled Oxygen - - Concentration Weight 119 kg (263 lb) 11/12/2017 10:16 AM CDT Height 177.8 cm (5' 10") 11/12/2017 10:16 AM CDT Body Mass Index 37.74 11/12/2017 10:16 AM CDT Plan of Treatment Health Maintenance Due Date Last Done Comments BREAST CANCER SCREENING 1993 COLON CANCER SCREENING 1993 SHINGRIX VACCINE (#1) 1993 ZOSTER VACCINE 2003 PNEUMOCOCCAL 02/19/2008 POLYSACCHARIDE VACCINE AGE 65 AND OVER PNEUMOCOCCAL-13 02/19/2008 INFLUENZA VACCINE 02/25/2018 Implants Implanted Type Area Sleeve Ironer Device Expiration Model / Identifier Date Serial / Lot Allograft Amniofix Membrane Human N/A: N/A [employer] 07/28/2022 APS 5616 / Amniotic 6 X 16cm - [id number] Tissue INC / Implanted: Qty: 1 on 11/12/2017 by Implants [id number] Wayne Hyatt MD [id number] Allograft Amniofix Membrane Human N/A: N/A [employer] 07/28/2022 APS 5616 / Amniotic 6 X 16cm - [id number] Tissue INC / Implanted: Qty: 1 on 11/12/2017 by Implants [id number] Wayne Hyatt MD [id number] Drain Wnd Chnl 19fr 4in Rnd Hbls Surgical N/A: [employer] OF 09/24 2231 / Fl-Flut W/ n Trocar - Implants; Abdomen SAAD & / [id number] Expanders; SAAD [id number] Implanted: Qty: 1 on 11/12/2017 by Extenders; Wayne Hyatt MD Surgical Wires Procedures Procedure Name Priority Date/Time Associated Diagnosis Comments ZZESTIMATED GFR Routine 11/13/2017 Results for this 3:56 AM CDT procedure are in the results section. MAGNESIUM LEVEL Routine 11/13/2017 Results for this 3:56 AM CDT procedure are in the results section. BASIC METABOLIC PANEL Routine 11/13/2017 Results for this 3:56 AM CDT procedure are in the results section. HEMOGLOBIN & HEMATOCRIT Routine 11/13/2017 Results for this 3:19 AM CDT procedure are in the results section. HEMOGLOBIN & HEMATOCRIT Routine 11/12/2017 Results for this 4:25 PM CDT procedure are in the results section. WV AN ELECTIVE Routine 11/12/2017 ENDOTRACHEAL AIRWAY 12:29 PM CDT Procedure Note - Toshia Granado CRNA - 11/12/2017 12:29 PM CDT Airway Date/Time: 11/12/2017 11:45 AM Performed by: TOSHIA GRANADO Authorized by: JENNY WHEELER Location: OR Urgency: Elective Difficult Airway: No Anesthesio logist: JENNY WHEELER Performed by: anesthesio logist Preoxygena oscar with 100% O2: Yes C-spine Precaution s Maintained Throughout : No Mask Ventilatio n: Easy mask Final Airway Type: Endotrache al airway Final Endotrache al Airway: ETT Cuffed: Yes Technique Used: Direct laryngosco py Devices/Me thods Used in Placement: Intubatin g stylet Insertion Site: Oral Blade Type: Nicole Laryngosco pe Blade/Vide olaryngosc ope Blade Size: 2 ETT Size (mm): 7.0 Cuff at minimum occlusion pressure: Yes Measured from: Lips ETT to Lips (cm): 22 Placement Verified by: CO2 detection, direct visualizat ion and equal breath sounds Laryngosco pic view: Grade I - full view of glottis Rapid Sequence Induction (RSI): No Modified RSI: No Number of Attempts at Approach: 1 Pt was preoxygena oscar x3 min. Eyes taped after LOC. DL x1 by Dr. Wheeler with Nicole 2 with grade 1 view. 7.0 ETT directly visualized pass through elio glottis atraumatic ally & cuffed to seal. Placement confirmed with bilateral breath sounds & ETCO2. OGT placed & stomach decompress ed. Lips, teeth, gums unchanged. SURGICAL PATHOLOGY Routine 11/12/2017 Results for this REQUEST 11:03 AM CDT procedure are in the results section. COLECTOMY, PARTIAL, 11/12/2017 Colon polyp LAPAROSCOPIC 11:00 AM CDT Case Notes REQ 1100 START,PINP OINT REQUESTED BUT NOT AVAILABLE PHU IN OFC NOTIFIED 11/11 [facility] Special Needs REQ 1100 STAR ECG PRE/POST OP Routine 10/23/2017 Preop testing Results for this 5:29 PM CDT procedure are in the results section. ZZESTIMATED GFR Routine 10/23/2017 Results for this 4:54 PM CDT procedure are in the results section. TYPE AND SCREEN Routine 10/23/2017 Preop testing Results for this 4:54 PM CDT procedure are in the results section. HEMOGLOBIN A1C Routine 10/23/2017 Preop testing Results for this 4:54 PM CDT procedure are in the results section. COMPREHENSIVE METABOLIC Routine 10/23/2017 Preop testing Results for this PANEL 4:54 PM CDT procedure are in the results section. HC COMPLETE BLD COUNT Routine 10/23/2017 Preop testing Results for this W/AUTO DIFF 4:54 PM CDT procedure are in the results section. CT CHEST W CONTRAST Routine 10/23/2017 Colonic mass Results for this ABDOMEN W WO CONTRAST 3:49 PM CDT procedure are in the PELVIS W CONTRAST results section. ESTIMATED GFR Routine 10/23/2017 Results for this 3:08 PM CDT procedure are in the results section. POC CREATININE Routine 10/23/2017 Results for this 3:08 PM CDT procedure are in the results section. after 01/10/2017 Results * Estimated GFR (11/13/2017 3:56 AM) Only the most recent of 2 results within the time period is included. GFR Non Af Amer 61 mL/min/1.73 m2 [facility] DEPARTMENT OF PATHOLOGY AND GENOMIC MEDICINE GFR Af Amer 74 mL/min/1.73 m2 [facility] DEPARTMENT OF Comment: PATHOLOGY AND Chronic kidney disease: <60 GENOMIC MEDICINE mL/min/1.73m2 Kidney failure: <15 mL/min/1.73m2 The estimated GFR is calculated from the IDMS-traceable Modification of Diet in Renal Disease Equation. The accuracy of the calculation is poor when the creatinine is normal. Calculated values >90 mL/min/1.73m2 are not reported. This equation has not been validated in children (<18 years), women, the elderly (>70 years), or ethnic groups other than Caucasians and Americans. Specimen Plasma specimen Performing Organization Address City/[facility]/[place] [address] PATHOLOGY [facility] * Magnesium level (11/13/2017 3:56 AM) Magnesium 1.7 1.6 - 2.4 mg/dL [facility] PATHOLOGY [facility] [employer] MEDICINE Specimen Plasma specimen Performing Organization Address City/[facility] [place] [address] PATHOLOGY [facility] [employer] [facility] * Basic metabolic panel (11/13/2017 3:56 AM) Sodium 134 (L) 135 - 148 mEq/L [facility] DEPARTMENT OF PATHOLOGY AND GENOMIC MEDICINE Potassium 3.8 3.5 - 5.0 mEq/L [facility] DEPARTMENT OF PATHOLOGY AND [employer] [facility] Chloride 100 98 - 112 mEq/L [facility] DEPARTMENT OF PATHOLOGY AND GENOMIC MEDICINE CO2 20 (L) 24 - 31 mEq/L [facility] DEPARTMENT OF PATHOLOGY AND GENOMIC MEDICINE Anion gap 14 7 - 15 mEq/L [facility] DEPARTMENT OF Comment: PATHOLOGY AND Starting from October [facility] , anion gap calculation no longer incorporates potassium. Please note the change. BUN 7 (L) 8 - 23 mg/dL [facility] DEPARTMENT OF PATHOLOGY AND [employer] [facility] Creatinine 0.9 0.5 - 0.9 mg/dL [facility] DEPARTMENT OF PATHOLOGY AND GENOMIC MEDICINE Glucose 124 (H) 65 - 99 mg/dL [facility] DEPARTMENT OF PATHOLOGY AND GENOMIC MEDICINE Calcium 8.5 (L) 8.8 - 10.2 mg/dL [facility] DEPARTMENT OF PATHOLOGY AND GENOMIC MEDICINE Specimen Plasma specimen Performing Organization Address City/[facility] Phone Number [facility] DEPARTMENT [address] [address] PATHOLOGY AND GENOMIC MEDICINE * Hemoglobin & hematocrit (11/13/2017 3:19 AM) Only the most recent of 2 results within the time period is included. HGB 10.3 (L) 12.0 - 16.0 g/dL [facility] DEPARTMENT OF PATHOLOGY AND GENOMIC MEDICINE HCT 31.7 (L) 37.0 - 47.0 % [facility] DEPARTMENT OF PATHOLOGY AND GENOMIC MEDICINE Specimen Blood Performing Organization Address [facility] Phone Number [facility] DEPARTMENT [address] [address] PATHOLOGY AND GENOMIC MEDICINE * Surgical pathology request (11/12/2017 11:03 AM) [facility] DEPARTMENT OF PATHOLOGY AND GENOMIC MEDICINE Surgical pathology report See link below for PDF Lab [facility] DEPARTMENT OF Report PATHOLOGY AND GENOMIC MEDICINE Result status This is Final Report to [facility] DEPARTMENT OF [id number] PATHOLOGY AND GENOMIC MEDICINE Performing Organization Address [facility] Phone Number [facility] DEPARTMENT [address] [address] PATHOLOGY AND GENOMIC MEDICINE * ECG Pre/Post Op (10/23/2017 5:29 PM) Ventricular rate 81 HM MUSE Atrial rate 81 HM MUSE WV interval 154 [facility] MUSE QRSD interval 78 HM MUSE QT interval 418 [facility] MUSE QTC interval 485 [facility] MUSE P axis 1 25 HM MUSE QRS axis 1 14 [facility] MUSE T wave axis 65 [facility] MUSE EKG impression Sinus rhythm with sinus [facility] MUSE arrhythmia with frequent premature ventricular complexes-Cannot rule out Anterior infarct , age undetermined-Abnormal ECG-No previous ECGs available- Performing Organization Address [facility] Cent[facility]ode Phone Number [facility] MUSE [address] [place] [phone] * CBC with platelet and differential (10/23/2017 4:54 PM) WBC 9.42 4.50 - 11.00 k/uL [facility] DEPARTMENT OF PATHOLOGY AND GENOMIC MEDICINE RBC 4.41 4.20 - 5.50 m/uL [facility] DEPARTMENT OF PATHOLOGY AND GENOMIC MEDICINE HGB 13.7 12.0 - 16.0 g/dL [facility] DEPARTMENT OF PATHOLOGY AND GENOMIC MEDICINE HCT 40.6 37.0 - 47.0 % [facility] DEPARTMENT OF PATHOLOGY AND GENOMIC MEDICINE MCV 92.1 82.0 - 100.0 fL [facility] DEPARTMENT OF PATHOLOGY AND GENOMIC MEDICINE MCH 31.1 27.0 - 34.0 pg [facility] DEPARTMENT OF PATHOLOGY AND GENOMIC MEDICINE MCHC 33.7 31.0 - 37.0 g/dL [facility] DEPARTMENT OF PATHOLOGY AND GENOMIC MEDICINE RDW - SD 43.7 37.0 - 55.0 fL [facility] DEPARTMENT OF PATHOLOGY AND GENOMIC MEDICINE MPV 10.3 8.8 - 13.2 fL [facility] DEPARTMENT OF PATHOLOGY AND GENOMIC MEDICINE Platelet count 299 150 - 400 k/uL [facility] DEPARTMENT OF PATHOLOGY AND GENOMIC MEDICINE Nucleated RBC 0.00 /100 WBC [facility] DEPARTMENT OF PATHOLOGY AND GENOMIC MEDICINE Neutrophils 46.2 39.0 - 69.0 % [facility] DEPARTMENT OF PATHOLOGY AND GENOMIC MEDICINE Lymphocytes 43.4 25.0 - 45.0 % [facility] DEPARTMENT OF PATHOLOGY AND GENOMIC MEDICINE Monocytes 6.8 0.0 - 10.0 % [facility] DEPARTMENT OF PATHOLOGY AND GENOMIC MEDICINE Eosinophils 2.2 0.0 - 5.0 % [facility] DEPARTMENT OF PATHOLOGY AND GENOMIC MEDICINE Basophils 1.0 0.0 - 1.0 % [facility] DEPARTMENT OF PATHOLOGY AND GENOMIC MEDICINE Immature granulocytes 0.4Comment: "Immature 0.0 - 1.0 % [facility] DEPARTMENT OF granulocytes" (promyelocytes, PATHOLOGY AND myelocytes, metamyelocytes) GENOMIC MEDICINE Specimen Blood Performing Organization Address City/[facility]/Zipcode Phone Number [address] [address] PATHOLOGY AND GENOMIC MEDICINE * Type and screen (10/23/2017 4:54 PM) ABO grouping O [facility] DEPARTMENT OF PATHOLOGY AND GENOMIC MEDICINE Rh type POS [facility] DEPARTMENT OF PATHOLOGY AND GENOMIC MEDICINE Antibody screen (gel) NEG [facility] DEPARTMENT OF PATHOLOGY AND GENOMIC MEDICINE Specimen Blood Performing Organization Address City/[facility] Centercode Phone Number [address] [address] PATHOLOGY AND GENOMIC MEDICINE * Hemoglobin A1c (10/23/2017 4:54 PM) Hemoglobin A1C 7.0 (H) 4.0 - 5.6 % [facility] DEPARTMENT OF Comment: PATHOLOGY AND HbA1c cutoffs for diagnosing [facility] diabetes: 4.0% - 5.6%=normal 5.7% - 6.4%=increased risk for diabetes (prediabetes) >=6.5%=diabetes Goals for glycemic control (ADA 2016) < 7.0% Target for non adults with diabetes. More or less stringent targets may be appropriate for individual patients. <7.5% Target for Children and adolescents with type 1 diabetes. Specimen Blood Performing Organization Address City/State/Zipcode Phone Number [place] [phone] [place] [address] PATHOLOGY AND GENOMIC MEDICINE * Comprehensive metabolic panel (10/23/2017 4:54 PM) Sodium 140 135 - 148 mEq/L [facility] DEPARTMENT OF PATHOLOGY AND GENOMIC MEDICINE Potassium 4.4 3.5 - 5.0 mEq/L [facility] DEPARTMENT OF PATHOLOGY AND GENOMIC MEDICINE Chloride 99 98 - 112 mEq/L [facility] DEPARTMENT OF PATHOLOGY AND GENOMIC MEDICINE CO2 24 24 - 31 mEq/L [facility] DEPARTMENT OF PATHOLOGY AND GENOMIC MEDICINE Anion gap 17 (H) 7 - 15 mEq/L [facility] DEPARTMENT OF Comment: PATHOLOGY AND Starting from October [facility] MEDICINE , anion gap calculation no longer incorporates potassium. Please note the change. BUN 11 8 - 23 mg/dL [facility] DEPARTMENT OF PATHOLOGY AND GENOMIC MEDICINE Creatinine 0.8 0.5 - 0.9 mg/dL [facility] DEPARTMENT OF PATHOLOGY AND GENOMIC MEDICINE Glucose 131 (H) 65 - 99 mg/dL [facility] DEPARTMENT OF PATHOLOGY AND GENOMIC MEDICINE Calcium 10.0 8.8 - 10.2 mg/dL [facility] DEPARTMENT OF PATHOLOGY AND GENOMIC MEDICINE Protein 7.6 6.3 - 8.3 g/dL [facility] DEPARTMENT OF Comment: PATHOLOGY AND GENOMIC MEDICINE 4.6-7.0 g/dL 1 week 4.4-7.6 g/dL 7 months-1year 5.1-7.3 g/dL 1-2 years 5.6-7 .5 g/dL >3 years 6.0-8 .0 g/dL 18-150 6.3-8.3 g/dL Albumin 4.2 3.5 - 5.0 g/dL [facility] DEPARTMENT OF PATHOLOGY AND GENOMIC MEDICINE A/G ratio 1.2 0.7 - 3.8 [facility] DEPARTMENT OF PATHOLOGY AND GENOMIC MEDICINE Alkaline phosphatase 97 35 - 104 U/L [facility] DEPARTMENT OF PATHOLOGY AND GENOMIC MEDICINE AST 32 10 - 35 U/L [facility] DEPARTMENT OF PATHOLOGY AND GENOMIC MEDICINE ALT 24 5 - 50 U/L [facility] DEPARTMENT OF PATHOLOGY AND GENOMIC MEDICINE Total bilirubin 0.3 0.0 - 1.2 mg/dL [facility] DEPARTMENT OF PATHOLOGY AND GENOMIC MEDICINE Specimen Plasma specimen Performing Organization Address City/State/Zipcode Phone Number [facility] DEPARTMENT OF [address] [place] [address] PATHOLOGY AND GENOMIC MEDICINE * CT Chest W Contrast Abdomen W Wo Contrast Pelvis W Contrast (10/23/2017 3:49 PM) Narrative Performed At EXAMINATION: CT CHEST W CONTRAST ABDOMEN W WO CONTRAST PELVIS W CONTRAST RADIANT CLINICAL HISTORY: K63.9 Disease of intestine unspecified, COLON MASS TECHNIQUE: Axial images of the abdomen were obtained prior to intravenous contrast administration. Multiple axial images of the chest, abdomen, and pelvis were obtained following intravenous administration of iodinated contrast. Sagittal and coronal computerized reformatted images were obtained.CT imaging was performed with iterative reconstruction technique and/or automated exposure control to reduce radiation dose. COMPARISON: None. FINDINGS: Chest: There is moderate cardiomegaly. There is coronary artery calcification. No enlarged mediastinal lymph node is seen. There is a prominent superior left superior intercostal vein. Intrathoracic aorta is within normal limits. The pulmonary artery is normal in caliber. Small right hilar lymph node is 9 mm. There is mild bilateral bronchial wall thickening. Moderate-sized hiatal hernia is present. Abdomen: Fatty infiltration of the liver. There is cholelithiasis. The pancreas, adrenal glands, spleen are within normal limits. Mild areas of bilateral renal cortical scarring are present. Circumferential thickening in the region of the cecum and proximal ascending colon is seen compatible with an apple core type colonic lesion which is compatible with the patient's history of primary colon neoplasm. No adjacent enlarged lymph nodes are present. An inferior vena cava filter is seen. Pelvis: No enlarged pelvic lymph node or mass is seen. IMPRESSION: Ascending/cecal colonic primary lesion without metastasis identified. Fatty infiltration of the liver. 9 mm nonspecific right hilar lymph node. [id number] Procedure Note Interface, Radiology Results Incoming - 10/23/2017 4:45 PM CDT EXAMINATION: CT CHEST W CONTRAST ABDOMEN W WO CONTRAST PELVIS W CONTRAST CLINICAL HISTORY: K63.9 Disease of intestine unspecified, COLON MASS TECHNIQUE: Axial images of the abdomen were obtained prior to intravenous contrast administration. Multiple axial images of the chest, abdomen, and pelvis were obtained following intravenous administration of iodinated contrast. Sagittal and coronal computerized reformatted images were obtained.CT imaging was performed with iterative reconstruction technique and/or automated exposure control to reduce radiation dose. COMPARISON: None. FINDINGS: Chest: There is moderate cardiomegaly. There is coronary artery calcification. No enlarged mediastinal lymph node is seen. There is a prominent superior left superior intercostal vein. Intrathoracic aorta is within normal limits. The pulmonary artery is normal in caliber. Small right hilar lymph node is 9 mm. There is mild bilateral bronchial wall thickening. Moderate-sized hiatal hernia is present. Abdomen: Fatty infiltration of the liver. There is cholelithiasis. The pancreas, adrenal glands, spleen are within normal limits. Mild areas of bilateral renal cortical scarring are present. Circumferential thickening in the region of the cecum and proximal ascending colon is seen compatible with an apple core type colonic lesion which is compatible with the patient's history of primary colon neoplasm. No adjacent enlarged lymph nodes are present. An inferior vena cava filter is seen. Pelvis: No enlarged pelvic lymph node or mass is seen. IMPRESSION: Ascending/cecal colonic primary lesion without metastasis identified. Fatty infiltration of the liver. 9 mm nonspecific right hilar lymph node. [id number] Performing Organization Address City/State/Zipcode Phone Number [facility] [address] [place] [address] * Estimated GFR (10/23/2017 3:08 PM) GFR Non Af Amer 61 mL/min/1.73 m2 [facility] DEPARTMENT OF PATHOLOGY AND GENOMIC MEDICINE GFR Af Amer 74 mL/min/1.73 m2 [facility] DEPARTMENT OF Comment: PATHOLOGY AND Chronic kidney disease: <60 GENOMIC MEDICINE mL/min/1.73m2 Kidney failure: <15 mL/min/1.73m2 The estimated GFR is calculated from the IDMS-traceable Modification of Diet in Renal Disease Equation. The accuracy of the calculation is poor when the creatinine is normal. Calculated values >90 mL/min/1.73m2 are not reported. This equation has not been validated in children (<18 years), women, the elderly (>70 years), or ethnic groups other than Caucasians and Americans. Specimen Blood Performing Organization Address City/State/Zipcode Phone Number [facility] DEPARTMENT [facility] [place] [address] PATHOLOGY AND GENOMIC MEDICINE * POC creatinine (10/23/2017 3:08 PM) POC creatinine 0.9 0.5 - 0.9 mg/dl [facility] DEPARTMENT OF Comment: PATHOLOGY AND Meter ID: [id number] GENOMIC MEDICINE Machine Operator Cane Cutter: Poncho Meier Specimen Blood Performing Organization Address City/State/Zipcode Phone Number [facility] DEPARTMENT OF [address] [place] [address] PATHOLOGY AND GENOMIC MEDICINE after 01/10/2017 Insurance Payer Benefit Subscriber ID Type Phone Address Plan / Group AETNA MEDICARE AETNA xxxxxxxx O MEDICARE HMO/PPO [facility] [place] [address]
--- OUTSIDE RECORDS SUMMARY | 2018-04-29 13:08 | XMS REPORT | Summary of Care ---
Author Organization Unknown Address Unknown Phone Unavailable Encounter HQ Encntr_alili(FIN) [id number] Date(s): 10/07/14 - 10/07/14 [facility] Outpatient Imaging - [address] [address] [phone] Discharge Disposition: Home Physician Attending: Junito Zafar MD Vital Signs No data [...]
--- OUTSIDE RECORDS SUMMARY | 2018-04-29 13:08 | XMS REPORT | Summary of Care ---
Author Author [facility] - [place] Organization [facility] [place] Address Unknown Phone Unavailable Encounter HQ Encntr_alias(FIN) [id number] Date(s): 08/15/15 - 08/15/15 [facility] Outpatient Imaging - [place] [facility] [address] [place], [place] [address] [phone] Discharge Disposition: Home Attending Physician: Junito Zafar [...]
--- OUTSIDE RECORDS SUMMARY | 2018-04-29 13:09 | XMS REPORT ---
[facility] Address Unknown Phone Unavailable Care Team Providers Care Sleeping Car Porter Name Role Phone MIRIAM HWANG Unavailable Unavailable Problems This patient has no known problems. Allergies, Adverse Reactions, Alerts This patient has no known allergies or adverse reactions. Medications This patient has no known medications. Results Test Description Test Time Test Comments Text Results Atomic Results Result Comments MRI BRAIN WO 2018-01-12 13:53:00 [place] [address] Patient Name: NATALIE DAWN MR #: [id number] : 1945 Age/Sex: 72/F Req #: [id number] Adm Physician: MIRIAM HWANG MD Ordered by: Lucía Lincoln NP Report #: [id number] Location: ICU Room/Bed: ICU [facility] Procedure: [id number] MRI/MRI BRAIN WO Exam Date: Exam Time: REPORT STATUS: Signed Exam: Brain MRI without with IV contrast History: Insert speech, rule out CVA Comparison studies: Brain MRI 09/08/[address] head [address]s of 01/11/2018. Technique: Sagittal and axial T2 FS, axial coronal T2 flair, axial T2*GRE, axial T1 FLAIR and axial DWI. Intravenous contrast: None Findings: Scalp: Normal in signal. No masses. Bone marrow: Normal in signal intensity. Brain sulci: Mildly prominent. Ventricles: Mild compensatory dilatation. Extra axial spaces: No mass, no fluid collection. Parenchyma : No mass, hemorrhage or acute ischemia. A few scattered T2 FLAIR hyperintense foci in the supratentorial white matter are nonspecific but most compatible with chronic small vessel ischemic changes. Small chronic right cerebellar lacunar infarct is unchanged. Suprasellar region: No abnormalities. Craniocervical junction: Patent foramen magnum. No Chiari malformation. Vessels: Normal flow-voids in the arteries and sinuses. IMPRESSION: No acute ischemia or other acute intracranial abnormalities. Chronic findings: 1. Stable mild microvascular ischemic changes. 2. Unchanged small chronic right cerebellar lacunar infarct. 3. Mild generalized volume loss, increased from 2008. Signed by: Dr. Janae Veras M.D. on 01/12/2018 2:03 PM Dictated By: JANAE VERAS MD 02 Transcribed By: GEO on 01/12/181402 COPY TO: LUCÍA LINCOLN NP CT BRAIN WO 2018-01-11 20:32:00 [place] [address] Patient Name: NATALIE DAWN MR #: [id number] : 1945 Age/Sex: 72/F Req #: [id number] Adm Physician: MIRIAM HWANG MD Ordered by: WILSON HELTON M.D. Report #: [id number] Location: ICU Room/Bed: ICU [facility] Procedure: [id number] CT/CT BRAIN WO Exam Date: Exam Time: 2011 REPORT STATUS: Signed Examination: CT head without contrast Clinical Indication: Dizziness; rule out stroke. Technique: Transaxial noncontrast images from the skull base through the vertex were obtained. Sagittal and coronal reformatted images were done. Comparison: Head CT performed earlier today. Findings: Scalp: No abnormalities. Bones: Intact. No fractures. No blastic or lytic lesions. Brain sulci: Mild volume loss for patient's age. Ventricles: No hydrocephalus. Extra-axial space: No abnormalities. Parenchyma: There are patchy areas of low-attenuation within subcortical and periventricular white matter, nonspecific, but could represent microvascular ischemic disease. No masses, hemorrhage, or acute or chronic cortical based vascular insults. Suprasellar region: No abnormalities. Craniocervical junction: The foramen magnum is patent. No Chiari one malformation. Incidental findings: Atherosclerotic calcification of the cavernous and supraclinoid internal carotid and V4 segments of the bilateral vertebral arteries. Impression: 1. No new acute intracranial finding. No change from head CT performed earlier today. 2. Mild chronic microvascular ischemic change and volume loss. Signed by: Dr. Anni Hartman M.D. on 01/11/2018 8:36 PM Dictated By: ANNI AZUL MD 35 Transcribed By: GEO on 01/11/182035 COPY TO: WILSON HELTON M.D. CHEST SINGLE (PORTABLE) 2018-01-11 15:42:00 [place] [address] Patient Name: NATALIE DAWN MR #: [id number] : 1945 Age/Sex: 72/F Req #: [id number] Adm Physician: Ordered by: OMER MARK TOOL DESIGN ENGINEER Report #: [id number] Location: ER Room/Bed: ___ Procedure: [id number] DX/CHEST SINGLE (PORTABLE) Exam Date: 01/11/18 Exam Time: 1504 REPORT STATUS: Signed EXAMINATION: CHEST SINGLE (PORTABLE) INDICATION: Evaluation for possible stroke COMPARISON: None FINDINGS: TUBES and LINES: None. LUNGS: Lungs are well inflated. Lungs are clear. There is no evidence of pneumonia or pulmonary edema. PLEURA: No pleural effusion or pneumothorax. HEART AND MEDIASTINUM: Cardiac size is mildly enlarged. There are atherosclerotic calcifications within the aorta. BONES AND SOFT TISSUES: No acute osseous lesion. Anterior cervicothoracic spine fusion with plates and screws. Soft tissues are unremarkable. UPPER ABDOMEN: No free air under the diaphragm. IMPRESSION: No acute thoracic abnormality. Signed by: Dr. Jens Whalen M.D. on 01/11/2018 3: 42 PM Dictated By: JENS TIJERINA MD 1542 Transcribed By: GEO on 01/11/18 1542 COPY TO: OMER MARK TOOL DESIGN ENGINEER CT BRAIN WO 2018-01-11 15:38:00 [place] [address] Patient Name: NATALIE DAWN MR #: [id number] : 1945 Age/Sex: 72/F Req #: [id number] Adm Physician: Ordered by: OMER MARK TOOL DESIGN ENGINEER Report #: [id number] Location: ER Room/Bed: Procedure: [id number] CT/CT BRAIN WO Exam Date: Exam Time: REPORT STATUS: Signed History:Slurred speech dizziness Comparison studies:MR brain 09/08/18 Technique: Axial images were obtained from the skull base to the vertex. Coronal and sagittal images reconstructed from the axial data. Intravenous contrast: None Findings: Scalp/skull: No abnormalities. Extra-axial spaces: No masses. No fluid collections. Brain sulci: Mildly prominent. Ventricles: Mild compensatory dilatation. No hydrocephalus. Parenchyma: Few hypodensities in the supratentorial white matter are small vessel ischemic changes. No masses, hemorrhage, acute or chronic cortical vascular insults. Sellar/suprasellar region: No abnormalities. Craniocervical junction: Patent foramen magnum. No Chiari one malformation. Incidental findings: Atherosclerotic calcifications in the carotid siphons . Impression: No acute abnormalities. Chronic findings: 1. Mild generalized volume loss. 2. Mild supratentorial white matter small vessel ischemic changes. Signed by: DR Dre Martinez M.D. on 01/11/2018 3:41 PM Dictated By: DRE AGUIRRE MD 1541 COPY TO: OMER MARK NP
--- OUTSIDE RECORDS SUMMARY | 2018-04-29 13:09 | XMS REPORT | Clinical Summary ---
Author Author [facility] Address Unknown Phone Unavailable Care Team Providers Care Wheel Molder Name Role Phone Asked, Pcp PCP Unavailable [...] Type Specialty Care Team Description 11/12/2017 [facility] General Surgery Wayne Hyatt MD Colon polyp - Encounter 11/14/2017 11/12/2017 Procedure Pass General Surgery 11/12/2017 Surgery General Surgery Wayne Hyatt MD LAPAROSCOPIC VS OPEN RIGHT COLECTOMY 10/23/2017 Pre-Admit Pre-Admission Testing Wayne Hyatt MD Preop testing (Primary Testing Dx) Appointment 10/23/2017 Hospital Radiology Wayne Hyatt MD Colonic mass Encounter 10/23/2017 Anesthesia General Surgery [facility], Daniel Waller, BENZOL OPERATOR 10/17/2017 Transcribe Access Wayne Hyatt MD Multiple benign polyps of Orders large intestine (Primary Dx); Colonic mass after 01/10/2017 Family History Medical History Relation Name Comments Heart disease Brother Heart disease Father [place] Heart disease Mother MVR,sepsis Relation Name Status [...] INFLUENZA VACCINE 02/25/2018 Implants Implanted Type Area Lens Grinder And Polisher Device Expiration Model / Identifier Date Serial / Lot Allograft Amniofix Membrane Human N/A: N/A [employer] 07/28/2022 APS 5616 / Amniotic 6 X 16cm - [id number] Tissue INC / Implanted: Qty: 1 on 11/12/2017 by Implants [id number] Wayne Hyatt MD [id number] Allograft Amniofix Membrane Human N/A: N/A [employer] 07/28/2022 APS 5616 / Amniotic 6 X 16cm - [id number] Tissue INC / Implanted: Qty: 1 on 11/12/2017 by Implants [id number] Wayne Hyatt MD [id number] Drain Wnd Chnl 19fr 4in Rnd Hbls Surgical N/A: [employer] OF 09/24 2231 / Fl-Flut W/ n Trocar - Implants; Abdomen SAAD & / [id number] Expanders; SAAD [id number] Implanted: Qty: 1 on 11/12/2017 by Extenders; [...] CDT procedure are in the results section. WA AN ELECTIVE Routine 11/12/2017 ENDOTRACHEAL AIRWAY 12:29 [...] GFR Non Af Amer 61 mL/min/1.73 m2 [facility] DEPARTMENT OF PATHOLOGY AND GENOMIC MEDICINE GFR Af Amer 74 mL/min/1.73 m2 [facility] DEPARTMENT OF Comment: PATHOLOGY AND Chronic [...] Americans. Specimen Plasma specimen Performing Organization Address City/[facility]/[place] [address] PATHOLOGY [facility] * Magnesium level (11/13/2017 3:56 AM) Magnesium 1.7 1.6 - 2.4 mg/dL [facility] PATHOLOGY [facility] [employer]INE Specimen Plasma specimen Performing Organization Address City/[facility] [place] [address] PATHOLOGY [facility] [employer] [facility] * Basic metabolic panel (11/13/2017 3:56 AM) Sodium 134 (L) 135 - 148 mEq/L [facility] DEPARTMENT OF PATHOLOGY AND GENOMIC MEDICINE Potassium 3.8 3.5 - 5.0 mEq/L [facility] DEPARTMENT OF PATHOLOGY AND [employer]ICINE Chloride 100 98 - 112 mEq/L [facility] DEPARTMENT OF PATHOLOGY AND GENOMIC MEDICINE CO2 20 (L) 24 - 31 mEq/L [facility] DEPARTMENT OF PATHOLOGY AND GENOMIC MEDICINE Anion gap 14 7 - 15 mEq/L [facility] DEPARTMENT OF Comment: PATHOLOGY AND Starting from October [facility] , anion gap calculation no longer incorporates potassium. Please note the change. BUN 7 (L) 8 - 23 mg/dL [facility] DEPARTMENT OF PATHOLOGY AND [employer] MEDICINE Creatinine 0.9 0.5 - 0.9 mg/dL [facility] DEPARTMENT OF PATHOLOGY AND GENOMIC MEDICINE Glucose 124 (H) 65 - 99 mg/dL [facility] DEPARTMENT OF PATHOLOGY AND GENOMIC MEDICINE Calcium 8.5 (L) 8.8 - 10.2 mg/dL [facility] DEPARTMENT OF PATHOLOGY AND GENOMIC MEDICINE Specimen Plasma specimen Performing Organization Address City/[facility] Phone Number [facility] DEPARTMENT [address] [address] PATHOLOGY AND GENOMIC MEDICINE * Hemoglobin & hematocrit (11/13/2017 3:19 AM) Only the most recent of 2 results within the time period is included. HGB 10.3 (L) 12.0 - 16.0 g/dL [facility] DEPARTMENT OF PATHOLOGY AND GENOMIC MEDICINE HCT 31.7 (L) 37.0 - 47.0 % [facility] DEPARTMENT OF PATHOLOGY AND GENOMIC MEDICINE Specimen Blood Performing Organization Address [facility] Cent[facility] Phone Number [facility] DEPARTMENT [address] [address] PATHOLOGY AND GENOMIC MEDICINE * Surgical pathology request (11/12/2017 11:03 AM) [facility] DEPARTMENT OF PATHOLOGY AND GENOMIC MEDICINE Surgical pathology report See link below for PDF Lab [facility] DEPARTMENT OF Report PATHOLOGY AND GENOMIC MEDICINE Result status This is Final Report to [facility] DEPARTMENT OF [id number] PATHOLOGY AND GENOMIC MEDICINE Performing Organization Address [facility] Phone Number [facility] DEPARTMENT [address] [address] PATHOLOGY AND GENOMIC MEDICINE * ECG Pre/Post Op (10/23/2017 5:29 PM) Ventricular rate 81 HM MUSE Atrial rate 81 HM MUSE WA interval 154 [facility] MUSE QRSD interval 78 HM MUSE QT interval 418 [facility] MUSE QTC interval 485 [facility] MUSE P axis 1 25 HM MUSE QRS axis 1 14 [facility] MUSE T wave axis 65 [facility] MUSE EKG impression Sinus rhythm with sinus [facility] MUSE arrhythmia with frequent premature ventricular complexes-Cannot rule out Anterior infarct , age undetermined-Abnormal ECG-No previous ECGs available- Performing Organization Address [facility] Centercode Phone Number [facility] MUSE [address] [place] [id number] * CBC with platelet and differential (10/23/2017 4:54 PM) WBC 9.42 4.50 - 11.00 k/uL [facility] DEPARTMENT OF PATHOLOGY AND GENOMIC MEDICINE RBC 4.41 4.20 - 5.50 m/uL [facility] DEPARTMENT OF PATHOLOGY AND GENOMIC MEDICINE HGB 13.7 12.0 - 16.0 g/dL [facility] DEPARTMENT OF PATHOLOGY AND GENOMIC MEDICINE HCT 40.6 37.0 - 47.0 % [facility] DEPARTMENT OF PATHOLOGY AND GENOMIC MEDICINE MCV 92.1 82.0 - 100.0 fL [facility] DEPARTMENT OF PATHOLOGY AND GENOMIC MEDICINE MCH 31.1 27.0 - 34.0 pg [facility] DEPARTMENT OF PATHOLOGY AND GENOMIC MEDICINE MCHC 33.7 31.0 - 37.0 g/dL [facility] DEPARTMENT OF PATHOLOGY AND GENOMIC MEDICINE RDW - SD 43.7 37.0 - 55.0 fL [facility] DEPARTMENT OF PATHOLOGY AND GENOMIC MEDICINE MPV 10.3 8.8 - 13.2 fL [facility] DEPARTMENT OF PATHOLOGY AND GENOMIC MEDICINE Platelet count 299 150 - 400 k/uL [facility] DEPARTMENT OF PATHOLOGY AND GENOMIC MEDICINE Nucleated RBC 0.00 /100 WBC [facility] DEPARTMENT OF PATHOLOGY AND GENOMIC MEDICINE Neutrophils 46.2 39.0 - 69.0 % [facility] DEPARTMENT OF PATHOLOGY AND GENOMIC MEDICINE Lymphocytes 43.4 25.0 - 45.0 % [facility] DEPARTMENT OF PATHOLOGY AND GENOMIC MEDICINE Monocytes 6.8 0.0 - 10.0 % [facility] DEPARTMENT OF PATHOLOGY AND GENOMIC MEDICINE Eosinophils 2.2 0.0 - 5.0 % [facility] DEPARTMENT OF PATHOLOGY AND GENOMIC MEDICINE Basophils 1.0 0.0 - 1.0 % [facility] DEPARTMENT OF PATHOLOGY AND GENOMIC MEDICINE Immature granulocytes 0.4Comment: "Immature 0.0 - 1.0 % [facility] DEPARTMENT OF granulocytes" (promyelocytes, PATHOLOGY AND myelocytes, metamyelocytes) GENOMIC MEDICINE Specimen Blood Performing Organization Address City/[facility]/Zipcode Phone Number [address] [address] PATHOLOGY AND GENOMIC MEDICINE * Type and screen (10/23/2017 4:54 PM) ABO grouping O [facility] DEPARTMENT OF PATHOLOGY AND GENOMIC MEDICINE Rh type POS [facility] DEPARTMENT OF PATHOLOGY AND GENOMIC MEDICINE Antibody screen (gel) NEG [facility] DEPARTMENT OF PATHOLOGY AND GENOMIC MEDICINE Specimen Blood Performing Organization Address City/[facility] Centercode Phone Number [address] [address] PATHOLOGY AND GENOMIC MEDICINE * Hemoglobin A1c (10/23/2017 4:54 PM) Hemoglobin A1C 7.0 (H) 4.0 - 5.6 % [facility] DEPARTMENT OF Comment: PATHOLOGY AND HbA1c cutoffs for diagnosing [facility] diabetes: 4.0% - 5.6%=normal 5.7% - 6.4%=increased risk for diabetes (prediabetes) >=6.5%=diabetes Goals for glycemic control (ADA 2016) < 7.0% Target for non adults with diabetes. More or less stringent targets may be appropriate for individual patients. <7.5% Target for Children and adolescents with type 1 diabetes. Specimen Blood Performing Organization Address City/State/Zipcode Phone Number [place] [phone] [place] [address] PATHOLOGY AND GENOMIC MEDICINE * Comprehensive metabolic panel (10/23/2017 4:54 PM) Sodium 140 135 - 148 mEq/L [facility] DEPARTMENT OF PATHOLOGY AND GENOMIC MEDICINE Potassium 4.4 3.5 - 5.0 mEq/L [facility] DEPARTMENT OF PATHOLOGY AND GENOMIC MEDICINE Chloride 99 98 - 112 mEq/L [facility] DEPARTMENT OF PATHOLOGY AND GENOMIC MEDICINE CO2 24 24 - 31 mEq/L [facility] DEPARTMENT OF PATHOLOGY AND GENOMIC MEDICINE Anion gap 17 (H) 7 - 15 mEq/L [facility] DEPARTMENT OF Comment: PATHOLOGY AND Starting from October [facility] MEDICINE , anion gap calculation no longer incorporates potassium. Please note the change. BUN 11 8 - 23 mg/dL [facility] DEPARTMENT OF PATHOLOGY AND GENOMIC MEDICINE Creatinine 0.8 0.5 - 0.9 mg/dL [facility] DEPARTMENT OF PATHOLOGY AND GENOMIC MEDICINE Glucose 131 (H) 65 - 99 mg/dL [facility] DEPARTMENT OF PATHOLOGY AND GENOMIC MEDICINE Calcium 10.0 8.8 - 10.2 mg/dL [facility] DEPARTMENT OF PATHOLOGY AND GENOMIC MEDICINE Protein 7.6 6.3 - 8.3 g/dL [facility] DEPARTMENT OF Comment: PATHOLOGY AND GENOMIC MEDICINE 4.6-7.0 g/dL 1 week 4.4-7.6 g/dL 7 months-1year 5.1-7.3 g/dL 1-2 years 5.6-7 .5 g/dL >3 years 6.0-8 .0 g/dL 18-150 6.3-8.3 g/dL Albumin 4.2 3.5 - 5.0 g/dL [facility] DEPARTMENT OF PATHOLOGY AND GENOMIC MEDICINE A/G ratio 1.2 0.7 - 3.8 [facility] DEPARTMENT OF PATHOLOGY AND GENOMIC MEDICINE Alkaline phosphatase 97 35 - 104 U/L [facility] DEPARTMENT OF PATHOLOGY AND GENOMIC MEDICINE AST 32 10 - 35 U/L [facility] DEPARTMENT OF PATHOLOGY AND GENOMIC MEDICINE ALT 24 5 - 50 U/L [facility] DEPARTMENT OF PATHOLOGY AND GENOMIC MEDICINE Total bilirubin 0.3 0.0 - 1.2 mg/dL [facility] DEPARTMENT OF PATHOLOGY AND GENOMIC MEDICINE Specimen Plasma specimen Performing Organization Address City/State/Zipcode Phone Number [facility] DEPARTMENT OF [address] [place] [address] PATHOLOGY AND GENOMIC MEDICINE * CT Chest [...] 9 mm nonspecific right hilar lymph node. [id number] Procedure Note Interface, Radiology Results Incoming - [...] 9 mm nonspecific right hilar lymph node. [id number] Performing Organization Address City/State/Zipcode Phone Number [facility] [address] [place] [address] * Estimated GFR (10/23/2017 3:08 PM) GFR Non Af Amer 61 mL/min/1.73 m2 [facility] DEPARTMENT OF PATHOLOGY AND GENOMIC MEDICINE GFR Af Amer 74 mL/min/1.73 m2 [facility] DEPARTMENT OF Comment: PATHOLOGY AND Chronic [...] Blood Performing Organization Address City/State/Zipcode Phone Number [facility] DEPARTMENT [facility] [place] [address] PATHOLOGY AND GENOMIC MEDICINE * POC creatinine (10/23/2017 3:08 PM) POC creatinine 0.9 0.5 - 0.9 mg/dl [facility] DEPARTMENT OF Comment: PATHOLOGY AND Meter ID: [id number] GENOMIC MEDICINE Scheduling Administrator: Poncho Meier Specimen Blood Performing Organization Address City/State/Zipcode Phone Number [facility] DEPARTMENT OF [address] [place] [address] PATHOLOGY AND GENOMIC MEDICINE after 01/10/2017 Insurance Payer Benefit Subscriber ID Type Phone Address Plan / Group AETNA MEDICARE AETNA xxxxxxxx O MEDICARE HMO/PPO [facility] [place] [address]
== END 2018-01-15 13:01 | disposition home health service (06) | DRG 65 ==
LOC: ER 14:44 → ERHOLD 16:57 → MED/SURG3 18:37 → ICU 19:47 → OBSVTOIN 01-13 14:27 → IMCU 01-13 19:40
PROVIDERS: ADMIT Internal Medicine; ATTEND Internal Medicine
DX: I63.9 Cerebral infarction, unspecified (principal); N39.0 Urinary tract infection, site not specified; I31.3 Pericardial effusion (noninflammatory); I44.7 Left bundle-branch block, unspecified; I34.0 Nonrheumatic mitral (valve) insufficiency; E66.9 Obesity, unspecified; Z68.37 Body mass index [BMI] 37.0-37.9, adult; Z86.73 Personal history of transient ischemic attack (TIA), and cerebral infarction without residual deficits
CPT/HCPCS: 36415; 70450; 70551; 71045; 80048; 80053; 80061; 81001; 82270; 82550; 82553; 82607; 82728; 82746; 82948; 83036; 83540; 83735; 83880; 84439; 84443; 84466; 84484; 85025; 85610; 85730; 87086; 92523; 93005; 93306; 93880; 97139; 99284; G0378; J0360; J0696; J1650; J1885; J1940; J2405; J7030

== ENCOUNTER → 2020-10-09 | Day surgery (SDC) | payer MEDICARE ==
[2020-10-06 10:26] LABS: BASOPHILS # (AUTO) 0.1 (0.0-0.1); BASOPHILS % 1.3 % (0.0-1.0); EOSINOPHILS # (AUTO) 0.2 (0.0-0.4); EOSINOPHILS % 3.7 % (0.0-6.0); HEMATOCRIT 42.2 % (34.2-44.1); HEMOGLOBIN 14.2 g/dL (12.0-16.0); LYMPHOCYTES # (AUTO) 2.7 (1.0-3.2); LYMPHOCYTES % 43.2 % (18.0-39.1); MEAN CORPUSCULAR HEMOGLOBIN 32.3 pg (28-32); MEAN CORPUSCULAR HGB CONC 33.6 g/dL (31-35); MEAN CORPUSCULAR VOLUME 95.9 fL (81-99); MONOCYTES # (AUTO) 0.5 (0.2-0.8); MONOCYTES % 8.1 % (4.4-11.3); NEUTROPHILS # (AUTO) 2.7 (2.1-6.9); NEUTROPHILS % 43.4 % (38.7-80.0); PLATELET COUNT 293 x10e3/uL (140-360); RED CELL DISTRIBUTION WIDTH 13.2 % (11.7-14.4)
[2020-10-06 10:46] LABS: ALBUMIN 4.2 g/dL (3.5-5.0); ALBUMIN/GLOBULIN RATIO 1.1 (0.8-2.0); ANION GAP 15.3 mmol/L (8-16); CREATININE, SERUM 0.97 mg/dL (0.57-1.11); POTASSIUM 4.3 mmol/L (3.5-5.1)
[~2020-10-09] MED LIST: AMBIEN10 MG PO; ASPIRIN ENTERI325 MG PO; ASPIRIN325 MG PO; ASPIRIN81 MG PO; BENZOCAINE 20% SPR 60 ML CAN ONE; CEFTIN PO; COLESTID1 G PO; CRESTOR10 MG; CRESTOR10 MG PO; DICYCLOMINE HCL10 MG PO; FUROSEMIDE40 MG PO; HYDRALAZINE HCL10 MG PO; KLOR-CON M2020 MEQ PO; LIDOCAINE HCL 2% LOCAL INJ 5 ML SDV VIAL INJ ONE; LISINOPRIL10 MG PO; LOSARTAN POTAS100 MG PO; MACROBID 100 M100 MG; METOPROLOL SUCC25 MG PO; NIFEDIPINE ER30 M1 PO; PROPOFOL IV EMULSION 10 MG/ML 20 ML VIAL ONE; SODIUM CHLORIDE 0.9% 1000ML 1,000 ML ONE; VITAMIN B-121000 MC1 PO; XARELTO20 MG PO
[2020-10-09 13:15] VITALS: BP 140/70
[2020-10-09 13:30] VITALS: BP 132/78
[2020-10-09 13:45] VITALS: BP 142/74
== END | disposition home or self-care (01) ==
LOC: CATH LAB 09:51
PROVIDERS: ATTEND Internal Medicine
DX: I48.0 Paroxysmal atrial fibrillation (principal); I11.0 Hypertensive heart disease with heart failure; I50.21 Acute systolic (congestive) heart failure; R07.2 Precordial pain; I69.328 Other speech and language deficits following cerebral infarction; Z79.82 Long term (current) use of aspirin; Z79.02 Long term (current) use of antithrombotics/antiplatelets; Z68.42 Body mass index [BMI] 45.0-49.9, adult; Z82.49 Family history of ischemic heart disease and other diseases of the circulatory system
CPT/HCPCS: 36415; 80053; 85025; 92960; 93005; 93307; 93312; 93320; 93325; J2001; J2704; J7030; U0002